=== PATIENT | female | born 1985 | race Caucasian/White ===

== ENCOUNTER 2019-07-15 15:34 | Emergency (ER) | payer MEDICAID ==
[2019-07-15] MEDS ORDERED: Sodium Chloride 0.9% 10 ML Syringe FLUSH PRN (16:37)
[2019-07-15] MEDS ORDERED: Sodium Chloride 0.9% 2.5 ML Syringe FLUSH PRN (16:37)
[2019-07-15] MEDS ORDERED: Ketorolac 30 MG/ML SDV IVPUSH ONE (16:38)
[2019-07-15] MEDS ORDERED: Ondansetron 4 MG/2 ML SDV IVPUSH ONE (16:38)
[2019-07-15] MEDS ORDERED: Metoclopramide 10 MG/2 ML SDV IV ONE (16:40)
[2019-07-15] MEDS ORDERED: diphenhydrAMINE 50 MG/ML SDV IVPUSH ONE (16:40)
[2019-07-15] MEDS ORDERED: Sodium Chloride 0.9% 1,000 ML IV SCH (16:45)
--- NOTE | 2019-07-15 16:50 | EDM.PDOC ---
ED HPI GENERAL MEDICAL PROBLEM - General Chief Complaint: Headache Stated Complaint: HEADACHE Time Seen by Provider: 07/15/19 16:13 Source of Information: Reports: Patient History Limitations: Reports: No Limitations - History of Present Illness INITIAL COMMENTS - FREE TEXT/NARRATIVE: HISTORY AND PHYSICAL: History of present illness: Patient is a 34-year-old female presents to the ED today with concern of a migraine 2 days. Patient states she has a known migraine disorder and follows with a neurologist in [place]. Patient states usually her rescue medications take care of it but this time has not. Patient states she's had to go to the ED in [place] a few times when her rescue medication as ordered. Patient states her migraine today as per her usual and there is no change from her baseline migraine. Patient does express photophobia but denies any other symptoms. Patient denies fever, chills, chest pain, shortness of breath, or cough. Denies neck stiff ness, change in vision, syncope, or near syncope. Denies nausea, vomiting, abdominal pain, diarrhea, constipation, or dysuria. Has not noted any blood in urine or stool. Patient has been eating and drinking appropriately. Review of systems: As per history of present illness and below otherwise all systems reviewed and negative. Past medical history: As per history of present illness and as reviewed below otherwise noncontributory. Surgical history: As per history of present illness and as reviewed below otherwise noncontributory. Social history: See social history for further information Family history: As per history of present illness and as reviewed below otherwise noncontributory. Physical exam: General: Patient is alert, oriented, and in no acute distress. Patient laying comfortably on exam table. HEENT: Atraumatic, normocephalic, pupils equal and reactive bilaterally, negative for conjunctival pallor or scleral icterus, mucous membranes moist, TMs normal bilaterally, throat clear, neck supple, nontender, trachea midline. No drooling or trismus noted. No meningeal signs. No hot potato voice noted. Lungs: Clear to auscultation, breath sounds equal bilaterally, chest nontender. Heart: S1S2, regular rate and rhythm without overt murmur Abdomen: Soft, nondistended, nontender. Negative for masses or hepatosplenomegaly. Negative for costovertebral tenderness. Pelvis: Stable nontender. Genitourinary: Deferred. Rectal: Deferred. Skin: Intact, warm, dry. No lesions or rashes noted. Extremities: Atraumatic, negative for cords or calf pain. Neurovascular unremarkable. Neuro: Awake, alert, oriented. Cranial nerves II through XII unremarkable. Cerebellum unremarkable. Motor and sensory unremarkable throughout. Exam nonfocal. Notes: Patient expresses resolution of symptoms today in the ED. Discussed the importance for follow-up with her primary care provider and her neurologist. Voices understanding and is agreeable to plan of care. Denies any further questions or concerns at this time. Diagnostics: None Therapeutics: Saline, Toradol, Zofran, Reglan, Benadryl Prescription: None Impression: Migraine headache History of migraines Plan: 1. Encourage small but frequent sips of fluid to prevent dehydration. 2. You can alternate ibuprofen and Tylenol as directed for pain and discomfort. 3. Follow up with your primary care provider and your neurologist as discussed. Return to the ED as needed and as discussed. Definitive disposition and diagnosis as appropriate pending reevaluation and review of above. headache Pain Score (Numeric/FACES): 10 - Related Data Allergies Allergy/AdvReac Type Severity Reaction Status Date / Time No Known Allergies Allergy Verified 07/15/19 15:52 Home Meds: Home Meds . [No Known Home Meds] 07/15/19 [History] Past Medical History - Past Health History Medical/Surgical History: Denies Medical/Surgical History Neurological History: Reports: Migraines Social & Family History - Family History Family Medical History: Noncontributory - Tobacco Use Smoking Status *Q: Current Every Day Smoker Years of Tobacco use: 20 Packs/Tins Daily: 1 - Recreational Drug Use Recreational Drug Use: No ED ROS GENERAL - Review of Systems Review Of Systems: ROS reveals no pertinent complaints other than HPI. ED EXAM, GENERAL - Physical Exam Exam: See Below (see dictation) Course - Vital Signs Last Recorded V/S: Last Vital Signs Temp 36.4 C 07/15/19 15:52 Pulse 78 07/15/19 15:52 Resp 18 07/15/19 15:52 BP 152/69 H 07/15/19 15:52 Pulse Ox 93 L 07/15/19 15:52 - Orders/Labs/Meds Orders: Active Orders 24 hr Category Date Time Status Sodium Chloride 0.9% [Normal Saline] 1,000 ml Med 07/15/19 16:45 Active IV STAT Sodium Chloride 0.9% [Saline Flush] Med 07/15/19 16:37 Active 10 ml FLUSH ASDIRECTED PRN Sodium Chloride 0.9% [Saline Flush] Med 07/15/19 16:37 Active 2.5 ml FLUSH ASDIRECTED PRN Saline Lock Insert [OM.PC] Stat Oth 07/15/19 16:37 Ordered Medication Orders Sodium Chloride (Normal Saline) 1,000 mls @ 999 mls/hr IV STAT KENDALL Last Admin: 07/15/19 16:40 Dose: 999 mls/hr Sodium Chloride (Saline Flush) 10 ml FLUSH ASDIRECTED PRN PRN Reason: Keep Vein Open Sodium Chloride (Saline Flush) 2.5 ml FLUSH ASDIRECTED PRN PRN Reason: Keep Vein Open Meds: Medications Generic Name Dose Route Start Last Admin Trade Name Freq PRN Reason Stop Dose Admin Sodium Chloride 1,000 mls @ 999 mls/hr 07/15/19 16:45 07/15/19 16:40 Normal Saline IV 999 mls/hr STAT KENDALL Administration Sodium Chloride 10 ml 07/15/19 16:37 Saline Flush FLUSH ASDIRECTED PRN Keep Vein Open Sodium Chloride 2.5 ml 07/15/19 16:37 Saline Flush FLUSH ASDIRECTED PRN Keep Vein Open Discontinued Medications Generic Name Dose Route Start Last Admin Trade Name Freq PRN Reason Stop Dose Admin Diphenhydramine HCl 50 mg 07/15/19 16:40 07/15/19 16:48 Benadryl IVPUSH 07/15/19 16:41 50 mg ONETIME ONE Administration Ketorolac Tromethamine 30 mg 07/15/19 16:38 07/15/19 16:43 Toradol IVPUSH 07/15/19 16:39 30 mg ONETIME ONE Administration Metoclopramide HCl 10 mg 07/15/19 16:40 07/15/19 16:48 Reglan IV 07/15/19 16:41 10 mg ONETIME ONE Administration Ondansetron HCl 4 mg 07/15/19 16:38 07/15/19 16:43 Zofran IVPUSH 07/15/19 16:39 4 mg ONETIME ONE Administration Departure - Departure Time of Disposition: 17:09 Disposition: Home, Self-Care 01 Clinical Impression: History of migraine Migraine Qualifiers: Migraine type: unspecified Status migrainosus presence: without status migrainosus Intractability: not intractable Qualified Code(s): G43.909 - Migraine, unspecified, not intractable, without status migrainosus - Discharge Information Referrals: PCP,Unknown [Primary Care Provider] - Forms: ED Department Discharge Additional Instructions: The following information is given to patients seen in the emergency department who are being discharged to home. This information is to outline your options for follow-up care. We provide all patients seen in our emergency department with a follow-up referral. The need for follow-up, as well as the timing and circumstances, are variable depending upon the specifics of your emergency department visit. If you don't have a primary care physician on staff, we will provide you with a referral. We always advise you to contact your personal physician following an emergency department visit to inform them of the circumstance of the visit and for follow-up with them and/or the need for any referrals to a consulting specialist. The emergency department will also refer you to a specialist when appropriate. This referral assures that you have the opportunity for follow-up care with a specialist. All of these measure are taken in an effort to provide you with optimal care, which includes your follow-up. Under all circumstances we always encourage you to contact your private physician who remains a resource for coordinating your care. When calling for follow-up care, please make the office aware that this follow-up is from your recent emergency room visit. If for any reason you are refused follow-up, please contact the [facility] Emergency Department at and asked to speak to the emergency department charge nurse. [facility] [address] [place] [id number] [id number] 1. Encourage small but frequent sips of fluid to prevent dehydration. 2. You can alternate ibuprofen and Tylenol as directed for pain and discomfort. 3. Follow up with your primary care provider and your neurologist as discussed. Return to the ED as needed and as discussed. - My Orders Last 24 Hours: My Active Orders 07/15/19 16:37 Sodium Chloride 0.9% [Saline Flush] 10 ml FLUSH ASDIRECTED PRN Sodium Chloride 0.9% [Saline Flush] 2.5 ml FLUSH ASDIRECTED PRN Saline Lock Insert [OM.PC] Stat 07/15/19 16:45 Sodium Chloride 0.9% [Normal Saline] 1,000 ml IV STAT - Assessment/Plan Last 24 Hours: My Active Orders 07/15/19 16:37 Sodium Chloride 0.9% [Saline Flush] 10 ml FLUSH ASDIRECTED PRN Sodium Chloride 0.9% [Saline Flush] 2.5 ml FLUSH ASDIRECTED PRN Saline Lock Insert [OM.PC] Stat 07/15/19 16:45 Sodium Chloride 0.9% [Normal Saline] 1,000 ml IV STAT
== END 2019-07-15 17:17 | disposition home or self-care (01) ==
LOC: MW.ED 15:34
DX: G43.909 Migraine, unspecified, not intractable, without status migrainosus (principal); F17.210 Nicotine dependence, cigarettes, uncomplicated
CPT/HCPCS: 96374; 96375; 99283; J1200; J1885; J2405; J2765; J7040

== ENCOUNTER 2021-08-27 00:04 | Emergency (ER) | payer MEDICAID ==
--- NOTE | 2021-08-27 00:34 | EDM.PDOC ---
ED HPI GENERAL MEDICAL PROBLEM - General Chief Complaint: Abdominal Pain Stated Complaint: POSIBLE APPENDIX Time Seen by Provider: 08/27/21 00:10 Source of Information: Reports: Patient History Limitations: Reports: No Limitations - History of Present Illness INITIAL COMMENTS - FREE TEXT/NARRATIVE: Patient is a 36-year-old female who presents today for right lower quadrant pain . The pain has been present for 3 days states it comes and goes. She states sometimes twisting and turning makes the pain worse. She reports some diarrhea and also some urinary frequency as well. She denies any vomiting fever chills shortness of breath or other symptoms. She has not take any medication for this pain at home. 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: Neurological History: Reports: Migraines - Infectious Disease History Infectious Disease History: Reports: C-Difficile - Past Surgical History Other Neurological Surgeries/Procedures: 2 back surgeries Social & Family History - Family History Family Medical History: No Pertinent Family History - Recreational Drug Use Recreational Drug Use: No ED ROS GENERAL - Review of Systems Review Of Systems: See Below Constitutional: Reports: No Symptoms HEENT: Reports: No Symptoms Respiratory: Reports: No Symptoms Cardiovascular: Reports: No Symptoms Endocrine: Reports: No Symptoms GI/Abdominal: Reports: Abdominal Pain : Reports: No Symptoms Musculoskeletal: Reports: No Symptoms Skin: Reports: No Symptoms Neurological: Reports: No Symptoms Psychiatric: Reports: No Symptoms Hematologic/Lymphatic: Reports: No Symptoms Immunologic: Reports: No Symptoms ED EXAM, GI/ABD - Physical Exam Exam: See Below Exam Limited By: No Limitations General Appearance: Alert, WD/WN, No Apparent Distress Eyes: Bilateral: EOMI Nose: Normal Inspection Respiratory/Chest: No Respiratory Distress, Lungs Clear, Normal Breath Sounds Cardiovascular: Normal Peripheral Pulses, Regular Rate, Rhythm GI/Abdominal Exam: Normal Bowel Sounds, Soft, Non-Tender Extremities: Normal Inspection Neurological: Alert, Oriented, Normal Cognition, Normal Gait Course - Vital Signs Last Recorded V/S: Last Vital Signs Temp 97.1 F 11/02/21 00:13 Pulse 70 08/27/21 00:45 Resp 17 08/27/21 00:45 BP 103/43 L 08/27/21 00:45 Pulse Ox 96 08/27/21 00:45 - Orders/Labs/Meds Labs: Laboratory Tests 08/27/21 08/27/21 08/27/21 Range/Units 00:20 00:20 00:23 WBC 14.30 H (4.0-11.0) K/uL RBC 4.66 (4.30-5.90) M/uL Hgb 14.2 (12.0-16.0) g/dL Hct 43.9 (36.0-46.0) % MCV 94.2 (80.0-98.0) fL MCH 30.5 (27.0-32.0) pg MCHC 32.3 (31.0-37.0) g/dL RDW Std Deviation 42.9 (28.0-62.0) fl RDW Coeff of [place] 13 (11.0-15.0) % Plt Count 317 (150-400) K/uL MPV 9.20 (7.40-12.00) fL Neut % (Auto) 45.8 L (48.0-80.0) % Lymph % (Auto) 43.6 H (16.0-40.0) % [place] % (Auto) 8.8 (0.0-15.0) % Eos % (Auto) 1.5 (0.0-7.0) % Baso % (Auto) 0.3 (0.0-1.5) % Neut # (Auto) 6.5 H (1.4-5.7) K/uL Lymph # (Auto) 6.2 H (0.6-2.4) K/uL [place] # (Auto) 1.3 H (0.0-0.8) K/uL Eos # (Auto) 0.2 (0.0-0.7) K/uL Baso # (Auto) 0.1 (0.0-0.1) K/uL Sodium 139 (136-145) mmol/L Potassium 3.8 (3.5-5.1) mmol/L Chloride 105 (98-107) mmol/L Carbon Dioxide 25.2 (21.0-32.0) mmol/L BUN 14 (7.0-18.0) mg/dL Creatinine 0.9 (0.6-1.0) mg/dL Est Cr Clr Drug Dosing 76.26 mL/min Estimated GFR (MDRD) > 60.0 ml/min Glucose 111 H (74-106) mg/dL Calcium 8.6 (8.5-10.1) mg/dL Total Bilirubin 0.3 (0.2-1.0) mg/dL AST 18 (15-37) IU/L ALT 32 (14-63) IU/L Alkaline Phosphatase 86 (46-116) U/L Total Protein 7.6 (6.4-8.2) g/dL Albumin 3.5 (3.4-5.0) g/dL Globulin 4.1 H (2.6-4.0) g/dL Albumin/Globulin Ratio 0.9 (0.9-1.6) Urine Color Urine Appearance Urine pH (5.0-8.0) Ur Specific [place] (1.001-1.035) Urine Protein (NEGATIVE) mg/dL Urine Glucose (UA) (NEGATIVE) mg/dL Urine Ketones (NEGATIVE) mg/dL Urine Occult Blood (NEGATIVE) Urine Nitrite (NEGATIVE) Urine Bilirubin (NEGATIVE) Urine Urobilinogen (<2.0) EU/dL Ur Leukocyte Esterase (NEGATIVE) Urine HCG, Qual NEGATIVE (NEGATIVE) 08/27/21 Range/Units 00:23 WBC (4.0-11.0) K/uL RBC (4.30-5.90) M/uL Hgb (12.0-16.0) g/dL Hct (36.0-46.0) % MCV (80.0-98.0) fL MCH (27.0-32.0) pg MCHC (31.0-37.0) g/dL RDW Std Deviation (28.0-62.0) fl RDW Coeff of [place] (11.0-15.0) % Plt Count (150-400) K/uL MPV (7.40-12.00) fL Neut % (Auto) (48.0-80.0) % Lymph % (Auto) (16.0-40.0) % [place] % (Auto) (0.0-15.0) % Eos % (Auto) (0.0-7.0) % Baso % (Auto) (0.0-1.5) % Neut # (Auto) (1.4-5.7) K/uL Lymph # (Auto) (0.6-2.4) K/uL [place] # (Auto) (0.0-0.8) K/uL Eos # (Auto) (0.0-0.7) K/uL Baso # (Auto) (0.0-0.1) K/uL Sodium (136-145) mmol/L Potassium (3.5-5.1) mmol/L Chloride (98-107) mmol/L Carbon Dioxide (21.0-32.0) mmol/L BUN (7.0-18.0) mg/dL Creatinine (0.6-1.0) mg/dL Est Cr Clr Drug Dosing mL/min Estimated GFR (MDRD) ml/min Glucose (74-106) mg/dL Calcium (8.5-10.1) mg/dL Total Bilirubin (0.2-1.0) mg/dL AST (15-37) IU/L ALT (14-63) IU/L Alkaline Phosphatase (46-116) U/L Total Protein (6.4-8.2) g/dL Albumin (3.4-5.0) g/dL Globulin (2.6-4.0) g/dL Albumin/Globulin Ratio (0.9-1.6) Urine Color YELLOW Urine Appearance SLT CLOUDY Urine pH 7.5 (5.0-8.0) Ur Specific [place] 1.020 (1.001-1.035) Urine Protein NEGATIVE (NEGATIVE) mg/dL Urine Glucose (UA) NEGATIVE (NEGATIVE) mg/dL Urine Ketones NEGATIVE (NEGATIVE) mg/dL Urine Occult Blood NEGATIVE (NEGATIVE) Urine Nitrite NEGATIVE (NEGATIVE) Urine Bilirubin NEGATIVE (NEGATIVE) Urine Urobilinogen 0.2 (<2.0) EU/dL Ur Leukocyte Esterase NEGATIVE (NEGATIVE) Urine HCG, Qual (NEGATIVE) Meds: Medications Discontinued Medications Generic Name Dose Route Start Last Admin Trade Name Freq PRN Reason Stop Dose Admin Iopamidol 100 ml 08/27/21 01:02 08/27/21 01:03 Iopamidol 755 Mg/Ml 500 Ml Multipack Bottle IVPUSH 08/27/21 01:03 100 ml ONETIME ONE Administration Ketorolac Tromethamine 30 mg 08/27/21 01:23 08/27/21 01:26 Ketorolac 30 Mg/Ml Sdv IVPUSH 08/27/21 01:24 30 mg ONETIME ONE Administration - Re-Assessments/Exams Free Text/Narrative Re-Assessment/Exam: 08/27/21 01:[address] shows normal appendix does have a small kidney stones may be the source of pain. Patient instructed to stay hydrated take Motrin and follow-up with PMD. Departure - Departure Time of Disposition: 01:58 Disposition: Home, Self-Care 01 Condition: Good Clinical Impression: Kidney stone - Discharge Information *PRESCRIPTION DRUG MONITORING PROGRAM REVIEWED*: Not Applicable *COPY OF PRESCRIPTION DRUG MONITORING REPORT IN PATIENT BELKYS: Not Applicable Instructions: Kidney Stones, [id number] Referrals: Edwin Saldaña MD [Primary Care Provider] - Forms: ED Department Discharge Additional Instructions: The following information is given to patients seen in the emergency department who are being discharged to home. This information is to outline your options for follow-up care. We provide all patients seen in our emergency department with a follow-up referral. The need for follow-up, as well as the timing and circumstances, are variable depending upon the specifics of your emergency department visit. If you don't have a primary care physician on staff, we will provide you with a referral. We always advise you to contact your personal physician following an emergency department visit to inform them of the circumstance of the visit and for follow-up with them and/or the need for any referrals to a consulting specialist. The emergency department will also refer you to a specialist when appropriate. This referral assures that you have the opportunity for follow-up care with a specialist. All of these measure are taken in an effort to provide you with optimal care, which includes your follow-up. Under all circumstances we always encourage you to contact your private physician who remains a resource for coordinating your care. When calling for follow-up care, please make the office aware that this follow-up is from your recent emergency room visit. If for any reason you are refused follow-up, please contact the [facility] Emergency Department at and asked to speak to the emergency department charge nurse. Please follow up with your primary care physician. If you do not have a primary care physician, see below: [facility] [address] [place] [address] My [facility] [address] [place] [address] You were seen today for right lower abdominal pain which you were concerned about appendicitis. Your CAT scan shows a normal appendix but it does show a small kidney stones which may be the source of your pain. We recommend he stay hydrated and take Motrin or Tylenol as needed for the pain. Please follow-up to primary care physician or return to the ED if you have any other concerning signs or symptoms. Sepsis Event Note (ED) - Evaluation Sepsis Screening Result: No Definite Risk - Focused Exam Vital Signs: Vital Signs Temp Pulse Resp BP Pulse Ox 08/27/21 00:45 70 17 103/43 L 96 08/27/21 00:13 97.1 F 70 16 112/69 95 - Assessment/Plan Plan: Patient is a 36-year-old female who presents today for right lower quadrant pain. Patient's pain is been present for 3 days and comes and goes. We will obtain labs CT scan and reassess.
[2021-08-27 00:43] LABS: BLOOD UREA NITROGEN,BUN 14 mg/dL (7.0-18.0); CARBON DIOXIDE,CO2 25.2 mmol/L (21.0-32.0); CHLORIDE,CL 105 mmol/L (98-107); GLUCOSE RANDOM 111 mg/dL (74-106); POTASSIUM,K 3.8 mmol/L (3.5-5.1); SODIUM,NA 139 mmol/L (136-145)
[2021-08-27] MEDS ORDERED: Iopamidol 755 MG/ML 500 ML Multipack Bottle IVPUSH ONE (01:02)
[2021-08-27] MEDS ORDERED: Ketorolac 30 MG/ML SDV IVPUSH ONE (01:23)
--- NOTE | 2021-08-27 01:23 | CT ---
INDICATION: Abdominal pain TECHNIQUE: CT abdomen and pelvis acquired with 100 cc Isovue 370 IV contrast. COMPARISON: None FINDINGS: Lower chest: Unremarkable. Liver: Unremarkable. Spleen: Splenic varices. Pancreas: Unremarkable. Gallbladder and bile ducts: Unremarkable. Adrenal glands: Unremarkable. Kidneys: Tiny nonobstructive left renal stones. GI tract: Unremarkable. Appendix is normal. Vascular structures: Unremarkable. Lymph nodes: Unremarkable. Miscellaneous: Unremarkable. No free air or significant free fluid. Pelvic Organs: Surgical clips in the left pelvis. Bones: Unremarkable for age. IMPRESSION: No acute intra-abdominal process identified. Normal appendix. Tiny nonobstructive left renal stones. Splenic varices. Please note that all CT scans at this facility use dose modulation, iterative reconstruction, and/or weight-based dosing when appropriate to reduce radiation dose to as low as reasonably achievable. Dictated by Aline Call MD @ 08/27/2021 1:21:15 AM (Electronically Signed)
== END 2021-08-27 02:08 | disposition home or self-care (01) ==
LOC: MW.ED 00:04
DX: N20.0 Calculus of kidney (principal)
CPT/HCPCS: 36415; 74177; 80053; 81003; 81025; 85025; 96374; 99284; J1885; Q9967

== ENCOUNTER 2021-09-18 23:40 | Emergency (ER) | payer MEDICAID ==
--- NOTE | 2021-09-19 00:14 | EDM.PDOC ---
ED HPI GENERAL MEDICAL PROBLEM - General Chief Complaint: General Stated Complaint: COVID SYMPTOMS Time Seen by Provider: 09/18/21 23:41 Generalized Pain Score (Numeric/FACES): 6 - Related Data Allergies Allergy/AdvReac Type Severity Reaction Status Date / Time No Known Allergies Allergy Verified 09/18/21 23:54 Home Meds: Home Meds . 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 ED EXAM, GENERAL - Physical Exam Exam: See Below Free Text/Narrative:: My physical exam is in the HPI Course - Vital Signs Last Recorded V/S: Last Vital Signs Temp 36.4 C 09/18/21 23:51 Pulse 78 09/18/21 23:51 Resp 18 09/18/21 23:51 BP 108/62 09/18/21 23:51 Pulse Ox 97 09/18/21 23:51 - Orders/Labs/Meds Orders: Active Orders 24 hr Category Date Time Status COVID-19/FLU A+B [MOLEC] Stat Lab 09/18/21 23:49 Results Labs: Laboratory Tests 09/18/21 Range/Units 23:49 Influenza Type A RNA NEGATIVE (NEGATIVE) Influenza Type B RNA NEGATIVE (NEGATIVE) - Re-Assessments/Exams Free Text/Narrative Re-Assessment/Exam: 09/19/21 00:36 COVID-19 test reported positive and influenza negative. Departure - Departure Time of Disposition: 00:36 Disposition: Home, Self-Care 01 Condition: Good Clinical Impression: Viral syndrome, Acute COVID-19 - Discharge Information Instructions: COVID-19 Vaccine Information, COVID-19 Frequently Asked Questions, COVID-19: What to Do If You Are Sick- [facility] (01/09/2021), COVID-19: Quarantine vs. Isolation - [facility] (10/11/2020) Referrals: Edwin Saldaña MD [Primary Care Provider] - Forms: ED Department Discharge Additional Instructions: Return if you have significant shortness of breath is increasing. Based on your weight to height ratio you are a candidate for monoclonal antibodies if you so desire. Otherwise you are not a person considered high risk for any complications. [facility] - Primary Care [address] [place] [id number] [facility] [address] [place] [id number] The following information is given to patients seen in the emergency department who are being discharged to home. This information is to outline your options for follow-up care. We provide all patients seen in our emergency department with a follow-up referral. The need for follow-up, as well as the timing and circumstances, are variable depending upon the specifics of your emergency department visit. If you don't have a primary care physician on staff, we will provide you with a referral. We always advise you to contact your personal physician following an emergency department visit to inform them of the circumstance of the visit and for follow-up with them and/or the need for any referrals to a consulting specialist. The emergency department will also refer you to a specialist when appropriate. This referral assures that you have the opportunity for follow-up care with a specialist. All of these measure are taken in an effort to provide you with optimal care, which includes your follow-up. Under all circumstances we always encourage you to contact your private physician who remains a resource for coordinating your care. When calling for follow-up care, please make the office aware that this follow-up is from your recent emergency room visit. If for any reason you are refused follow-up, please contact the [facility] Emergency Department at and asked to speak to the emergency department charge nurse. Sepsis Event Note (ED) - Evaluation Sepsis Screening Result: No Definite Risk - Focused Exam Vital Signs: Vital Signs Temp Pulse Resp BP Pulse Ox 11/24/21 23:51 36.4 C 78 18 108/62 97 - My Orders Last 24 Hours: My Active Orders 09/18/21 23:49 COVID-19/FLU A+B [MOLEC] Stat - Assessment/Plan Last 24 Hours: My Active Orders 09/18/21 23:49 COVID-19/FLU A+B [MOLEC] Stat
[2021-09-19 00:32] LABS: CORONAVIRUS COVID-19 NAA POSITIVE (NEGATIVE); INFLUENZA A NAA NEGATIVE (NEGATIVE); INFLUENZA B NAA NEGATIVE (NEGATIVE)
--- NOTE | 2021-09-23 19:08 | EDM.PDOC ---
ED [facility] GENERAL MEDICAL PROBLEM - General Chief Complaint: General Stated Complaint: COVID SYMPTOMS Time Seen by Provider: 09/18/21 23:41 - History of Present Illness INITIAL COMMENTS - FREE TEXT/NARRATIVE: My physical exam is in the HPI history of present illness: [] Patient has Covid symptoms including body aches and loss of taste and smell. Patient is alert ambulatory no acute distress. Review of systems: As per history of present illness and below otherwise all systems reviewed and negative. Past medical history: As per history of present illness and as reviewed below otherwise noncontributory. Surgical history: As per history of present illness and as reviewed below otherwise noncontributory. Social history: No reported history of drug or alcohol abuse. Family history: As per history of present illness and as reviewed below otherwise noncontributory. Physical exam: Constitutional - well developed, well-nourished and in no acute distress HEENT - normocephalic, no evidence of trauma - external nose and mouth normal - no mass in neck and no JVD - mucosae moist EYES - full EOM, PERRL, no icterus - no evidence of inflammation, injection, or drainage Respiratory - no respiratory distress, equal bilateral expansion, lungs clear to auscultation and no abnormal lung sounds Cardiovascular - Regular Rhythm with S1 and S2 appreciated and no murmur, gallop or rub. GI - abdomen soft without distension or organomegaly - normal bowel sounds - no guard or rebound Musculoskeletal no gross deformity of long bones or joints - no tenderness, swelling or edema Neurologic - Alert and oriented times four - CN II-XII grossly intact - motor sensory and coordination symmetrically normal Psychiatric - appropriate mood and affect with normal thought content Hematologic - No petechiae or purpura - mucosa appropriate color and sclera not pale - normal nail bed color and refill Integument - no rash or evidence of trauma - normal turgor Diagnostics: [] Therapeutics: [] Impression: [] Plan: [] Definitive disposition and diagnosis as appropriate pending reevaluation and review of above. Generalized Pain Score (Numeric/FACES): 6 - Related Data Allergies Allergy/AdvReac Type Severity Reaction Status Date / Time No Known Allergies Allergy Verified 09/18/21 23:54 Home Meds: Home Meds . 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 ED EXAM, GENERAL - Physical Exam Exam: See Below Free Text/Narrative:: My physical exam is in the HPI Course - Vital Signs Last Recorded V/S: Last Vital Signs Temp 36.4 C 09/18/21 23:51 Pulse 68 09/19/21 00:37 Resp 16 09/19/21 00:37 BP 98/56 L 09/19/21 00:37 Pulse Ox 97 09/19/21 00:37 - Orders/Labs/Meds Labs: Laboratory Tests 09/18/21 Range/Units 23:49 Influenza Type A RNA NEGATIVE (NEGATIVE) Influenza Type B RNA NEGATIVE (NEGATIVE) SARS-CoV-2 RNA (MATTIE) POSITIVE H (NEGATIVE) Departure - Departure Time of Disposition: 00:46 Disposition: Home, Self-Care 01 Condition: Good Clinical Impression: Viral syndrome, Acute COVID-19 - Discharge Information Instructions: COVID-19 Frequently Asked Questions, COVID-19 Vaccine Information, COVID-19: Quarantine vs. Isolation - [facility] (10/11/2020), COVID-19: What to Do If You Are Sick- [facility] (01/09/2021) Referrals: Edwin Saldaña MD [Primary Care Provider] - Forms: ED Department Discharge Additional Instructions: Return if you have significant shortness of breath is increasing. Based on your weight to height ratio you are a candidate for monoclonal antibodies if you so desire. Otherwise you are not a person considered high risk for any complications. [facility] - Primary Care [address] [place] [id number] [place] [address] [place] [id number] The following information is given to patients seen in the emergency department who are being discharged to home. This information is to outline your options for follow-up care. We provide all patients seen in our emergency department with a follow-up referral. The need for follow-up, as well as the timing and circumstances, are variable depending upon the specifics of your emergency department visit. If you don't have a primary care physician on staff, we will provide you with a referral. We always advise you to contact your personal physician following an emergency department visit to inform them of the circumstance of the visit and for follow-up with them and/or the need for any referrals to a consulting specialist. The emergency department will also refer you to a specialist when appropriate. This referral assures that you have the opportunity for follow-up care with a specialist. All of these measure are taken in an effort to provide you with optimal care, which includes your follow-up. Under all circumstances we always encourage you to contact your private physician who remains a resource for coordinating your care. When calling for follow-up care, please make the office aware that this follow-up is from your recent emergency room visit. If for any reason you are refused follow-up, please contact the [facility] Emergency Department at and asked to speak to the emergency department charge nurse. Sepsis Event Note (ED) - Evaluation Sepsis Screening Result: No Definite Risk
== END 2021-09-19 00:46 | disposition home or self-care (01) ==
LOC: MW.ED 23:40
DX: U07.1 COVID-19 (principal); Z72.0 Tobacco use
CPT/HCPCS: 0240U; 99284

== ENCOUNTER 2021-09-23 22:19 | Emergency (ER) | payer MEDICAID ==
--- NOTE | 2021-09-23 22:38 | EDM.PDOC ---
ED HPI GENERAL MEDICAL PROBLEM - General Chief Complaint: Respiratory Problem Stated Complaint: COVID, POSSIBLE PNEUMONIA Time Seen by Provider: 09/23/21 22:37 - History of Present Illness INITIAL COMMENTS - FREE TEXT/NARRATIVE: History of present illness: [] Diagnosed here Covid positive on 18 September 2021. Had been sick for 5 days prior to that. She received monoclonal antibodies 2 days ago. Now she feels tightness in her chest cough and shortness of breath. She feels like when she had pneumonia in the past. Review of systems: As per history of present illness and below otherwise all systems reviewed and negative. Past medical history: As per history of present illness and as reviewed below otherwise noncontributory. Surgical history: As per history of present illness and as reviewed below otherwise noncon tributory. Social history: No reported history of drug or alcohol abuse. Family history: As per history of present illness and as reviewed below otherwise noncontributory. Physical exam: Constitutional - well developed, well-nourished and in no acute distress HEENT - normocephalic, no evidence of trauma - external nose and mouth normal - no mass in neck and no JVD - mucosae moist EYES - full EOM, PERRL, no icterus - no evidence of inflammation, injection, or drainage Respiratory - no respiratory distress, equal bilateral expansion, lungs diminished breath sounds and scattered wheezes. Cardiovascular - Regular Rhythm with S1 and S2 appreciated and no murmur, gallop or rub. GI - abdomen soft without distension or organomegaly - normal bowel sounds - no guard or rebound Musculoskeletal no gross deformity of long bones or joints - no tenderness, swelling or edema Neurologic - Alert and oriented times four - CN II-XII grossly intact - motor sensory and coordination symmetrically normal Psychiatric - appropriate mood and affect with normal thought content Hematologic - No petechiae or purpura - mucosa appropriate color and sclera not pale - normal nail bed color and refill Integument - no rash or evidence of trauma - normal turgor Diagnostics: [] Therapeutics: [] Impression: [] Plan: [] Definitive disposition and diagnosis as appropriate pending reevaluation and review of above. 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 ED EXAM, GENERAL - Physical Exam Exam: See Below Free Text/Narrative:: My physical exam is in the HPI Course - Vital Signs Last Recorded V/S: Last Vital Signs Temp 35.9 C L 09/23/21 22:28 Pulse 87 09/23/21 23:07 Resp 20 09/23/21 23:07 BP 102/53 L 09/23/21 23:07 Pulse Ox 96 09/23/21 23:07 - Orders/Labs/Meds Orders: Active Orders 24 hr Category Date Time Status RT Post Treatment Assessment [RC] Click to Edit Care 09/23/21 22:55 Active RT Pre-Treatment Assessment [RC] Click to Edit Care 09/23/21 22:55 Active Meds: Medications Discontinued Medications Generic Name Dose Route Start Last Admin Trade Name Filiq PRN Reason Stop Dose Admin Albuterol 8 gm 09/23/21 22:55 09/23/21 23:04 Albuterol 8 Gm Inhaler INH 09/23/21 22:56 8 dose STAT STA Administration Prednisone 60 mg 09/23/21 22:56 09/23/21 23:03 Prednisone 20 Mg Tab PO 09/23/21 22:57 60 mg ONETIME ONE Administration - Re-Assessments/Exams Free Text/Narrative Re-Assessment/Exam: 09/23/21 23:46 Patient markedly improved after treatment. Departure - Departure Time of Disposition: 23:46 Disposition: Home, Self-Care 01 Condition: Good Clinical Impression: Dyspnea, Bronchospasm, COVID-19 virus infection - Discharge Information Prescriptions: methylPREDNISolone [Medrol Dose Pack] 4 mg PO DAILY #21 tab Albuterol [Ventolin HFA] 8 gm INH Q4HR PRN #1 ea PRN Reason: Cough Instructions: Shortness of Breath, Adult, [id number], COVID-19 Vaccine Information, Bronchospasm, Adult, [id number], COVID-19: Quarantine vs. Isolation - [facility] (10/11/2020), COVID-19: What to Do If You Are Sick- [facility] (01/09/2021) Referrals: Edwin Saldaña MD [Primary Care Provider] - Forms: ED Department Discharge Additional Instructions: Medicines were sent to [facility]. Increase fluids. Return if more short of breath. [facility] - Primary Care [address] [place] [address] [id number] [id number] The following information is given to patients seen in the emergency department who are being discharged to home. This information is to outline your options for follow-up care. We provide all patients seen in our emergency department with a follow-up referral. The need for follow-up, as well as the timing and circumstances, are variable depending upon the specifics of your emergency department visit. If you don't have a primary care physician on staff, we will provide you with a referral. We always advise you to contact your personal physician following an emergency department visit to inform them of the circumstance of the visit and for follow-up with them and/or the need for any referrals to a consulting specialist. The emergency department will also refer you to a specialist when appropriate. This referral assures that you have the opportunity for follow-up care with a specialist. All of these measure are taken in an effort to provide you with optimal care, which includes your follow-up. Under all circumstances we always encourage you to contact your private physician who remains a resource for coordinating your care. When calling for follow-up care, please make the office aware that this follow-up is from your recent emergency room visit. If for any reason you are refused follow-up, please contact the [facility] Emergency Department at and asked to speak to the emergency department charge nurse. Sepsis Event Note (ED) - Evaluation Sepsis Screening Result: No Definite Risk - Focused Exam Vital Signs: Vital Signs Temp Pulse Resp BP Pulse Ox 09/23/21 23:07 87 20 102/53 L 96 09/23/21 22:28 35.9 C L 74 20 118/83 95 - My Orders Last 24 Hours: My Active Orders 09/23/21 22:55 RT Post Treatment Assessment [RC] Click to Edit RT Pre-Treatment Assessment [RC] Click to Edit - Assessment/Plan Last 24 Hours: My Active Orders 09/23/21 22:55 RT Post Treatment Assessment [RC] Click to Edit RT Pre-Treatment Assessment [RC] Click to Edit
[2021-09-23] MEDS ORDERED: Albuterol 8 GM Inhaler INH STA (22:55)
[2021-09-23] MEDS ORDERED: predniSONE 20 MG Tab PO ONE (22:56)
--- NOTE | 2021-09-23 23:12 | CR ---
Indication: Cough and shortness of breath Technique: Chest 2 views Comparison: None Findings/Impression: Cardiovascular and mediastinum: Heart size and vasculature are normal in caliber and appearance. Mediastinum is within normal limits. Lungs and pleural spaces: Lungs are clear. No sign of infiltrate or mass. No sign of pleural effusion. No pneumothorax. Bones and soft tissues: No significant findings. Dictated by Ramiro Sin MD @ 09/23/2021 11:10:38 PM (Electronically Signed)
== END 2021-09-23 23:51 | disposition home or self-care (01) ==
LOC: MW.ED 22:19
DX: U07.1 COVID-19 (principal); J98.01 Acute bronchospasm
CPT/HCPCS: 71046; 99284; A9270

== ENCOUNTER 2025-07-09 10:27 | Emergency (ER) | payer MEDICAID ==
[2025-07-09 10:49] LABS: MEAN PLATELET VOLUME 9.0 fL (9.4-12.3); NRBC ABSOLUTE 0.00 K/uL (0.00-0.02); NRBC PERCENT 0.0 /100WBC (0.0-0.2); PLATELET COUNT,PLT 241 K/uL (150-400); RED BLOOD CELL COUNT 4.55 M/uL (4.10-5.30); WHITE BLOOD CELL COUNT,WBC 11.64 K/uL (3.9-11.3)
[2025-07-09 11:02] LABS: LYMPHOCYTES ABSOLUTE MAN 5.47 K/uL (1.00-4.80); LYMPHOCYTES PERCENT MAN 47 % (24-44); SEG NEUTROPHILS ABSOLUTE MAN 5.94 K/uL (1.80-7.70); SEG NEUTROPHILS PERCENT MAN 51 % (41-71)
[2025-07-09 11:03] LABS: EOSINOPHILS ABSOLUTE MAN 0.12 K/uL (0.00-0.45); EOSINOPHILS PERCENT MAN 1 % (0-6); MONOCYTES ABSOLUTE MAN 0.12 K/uL (0.00-0.80); MONOCYTES PERCENT MAN 1 % (0-8)
[2025-07-09 11:18] LABS: A/G RATIO 1.0 (0.9-1.6); ALANINE AMINOTRANSFERASE,ALT 66 IU/L (14-63); ASPARTATE AMNIOTRANSFERASE,AST 34 IU/L (15-37); BILIRUBIN TOTAL 0.6 mg/dL (0.2-1.0); BLOOD UREA NITROGEN,BUN 14 mg/dL (7.0-18.0); CARBON DIOXIDE,CO2 25.0 mmol/L (21.0-32.0); CHLORIDE,CL 103 mmol/L (98-107); CREATININE 0.9 mg/dL (0.6-1.0); EST CRCL DRUG DOSING (CG) 73.27 mL/min; ESTIMATED GFR 82 mL/min (>60); GLUCOSE RANDOM 147 mg/dL (74-106); POTASSIUM,K 4.0 mmol/L (3.5-5.1); PRO B-TYPE NATRIUR PEPT,BNPPRO 44 pg/mL (0-125); PROTEIN TOTAL,TP 7.3 g/dL (6.4-8.2); SODIUM,NA 139 mmol/L (136-145)
== END 2025-07-09 11:59 | disposition home or self-care (01) ==
LOC: MW.ED 10:27
DX: J06.9 Acute upper respiratory infection, unspecified (principal); R07.9 Chest pain, unspecified; Z79.899 Other long term (current) drug therapy
CPT/HCPCS: 36415; 71045; 80053; 83880; 84484; 85025; 87428; 93005; 94640; 99285; J7620; 93010; 99284; A9270-GY